=== PATIENT | male | born 1950 | race Caucasian/White ===

== ENCOUNTER 2022-08-21 08:52 | Outpatient (CLI) | payer MEDICARE, SELFPAY ==
--- NOTE | 2022-08-21 09:00 | CRLHL7_ITS ---
For Patients: As a result of the Century Cures Act, medical imaging exams and procedure reports are released immediately into your electronic medical record. You may view this report before your referring provider. If you have questions, please contact your health care provider. Indication: f/u umb cord cyst Technique: Performed without IV contrast Comparison: None available Findings: Frontal sinuses: Mild mucosal thickening within the inferior frontal sinuses bilaterally. Ethmoid sinuses: Clear. Maxillary sinuses: Postop changes noted. Minimal mucosal thickening noted bilaterally at the superomedial aspects. The maxillary sinus drainage pathways are patent on both sides. Sphenoid sinuses: Mild mucosal thickening right sphenoid sinus. Clear left sphenoid sinus. Patent sphenoethmoidal recesses. Nasal Cavity: Nasal turbinate mucosal hypertrophy is present bilaterally without nasal polyp or papilloma. Slight curvature of the posterior nasal septum. No TMJ abnormalities identified. The visualized portions of the orbits, intracranial contents and upper soft tissue neck are grossly negative. Impression: 1. Minimal bilateral sinus disease with trace mucosal thickening. 2. Bilateral nasal turbinate mucosal hypertrophy without nodularity. Please note that all CT scans at this facility use dose modulation, iterative reconstruction, and/or weight-based dosing when appropriate to reduce radiation dose to as low as reasonably achievable. Dictated by Kavon Lovelace MD @ 08/21/2022 10:22:54 AM (Electronically Signed)
== END 2022-08-21 08:53 | disposition home or self-care (01) ==
LOC: CT 08:53
PROVIDERS: PCP Family Medicine; Visit Provider Otolaryngology
DX: J32.9 Chronic sinusitis, unspecified (principal); J33.8 Other polyp of sinus
CPT/HCPCS: 70486